=== PATIENT | male | born 1970 | race Caucasian/White ===

== ENCOUNTER → 2020-05-19 | Outpatient (CLI) | payer BC, OTHER ==
[~2020-05-19] VITALS: Ht 180.3 cm; Wt 88.5 kg
[~2020-05-19] MED LIST: ASPIRIN EC81 M1 PO; BACLOFEN 10MG T10 MG PO; CRESTOR10 MG PO; FISH OIL 1,0001 EAC5 PO; LISINOPRIL10 MG PO; MEDROLDOSEPACK PO; MULTIVITAMINS1 EAC7 PO; NEURONTIN300 MG PO
[2020-05-19 10:02] VITALS: BP 137/88
--- NOTE | 2020-05-19 10:25 | NUR ---
Pain Clinic Assessment: 1. History of Osteoarthritis: History of Rheumatoid Arthritis: 2. Height: 5 ft. 11 in. 180.3 cm. Weight: 195.0 lb. oz. 88.452 kg. Patient's BMI: 27.2 3. Vital Signs: BP: 137/88 Pulse: 71 Resp: 14 Temp: 02 Sat: 100 ECG Mon: 4. Pain Intensity: 3 5. Fall Risk: Dizziness: N Needs help standing or walking: N Fallen in the last 3 months: N Fall risk comments: 6. Patient on Blood Thinner: None 7. History of Hypertension: Y 8. Opioid Therapy greater than 6 weeks: Opiate Contract Signed: 9. Risk Assessment Tool Provided: 0 LOW RISK 10. Functional Assessment Tool: 11. Recreational Drug Use: Never Drug Type: Tobacco Use: Never Smoker Tobacco Type: Amount or Packs/day: How Many Years: Alcohol Use: No Frequency: Quant:
--- NOTE | 2020-05-20 12:00 | HPC ---
[facility] [place] [address] PAIN MANAGEMENT CONSULTATION Name: JONAH MCDONALD [facility] [id number] Admission: 05/19/20 Attend Phys: Edinson Yan DO Discharge: Date of : 74 Report #: [id number] THIS REPORT FOR: cc: GORGE DUMONT Physician not on staff Edinson Yan DO ~ DATE OF SERVICE: 05/19/2020 REFERRING PHYSICIAN: Gorge Dumont APRN CHIEF COMPLAINT: Low back pain, left lower extremity pain with paresthesias. HISTORY OF PRESENT ILLNESS: As you know, the patient is a very pleasant 49-year-old male, reporting acute onset of low back pain, left lower extremity pain that presented on 02/10/2020. The patient denies any specific injury or trauma that led to symptom development. He began with low back symptoms radiating all the way down to the left foot. He has now mainly left foot numbness and tingling. He trialled a Medrol Dosepak along with naproxen sodium, which provided only transient improvement in symptoms. He has sought evaluation through chiropractor, it started about 3 weeks ago, appears to be working fairly well for pain control. Due to lack of significant improvement with conservative treatment, the patient was sent to imaging at [facility] in [place], [place]. Imaging showed changes at the L3-L4 level as well as some changes at the L4-L5 and L5-S1 level that prompted referral to our clinic. The patient indicates his pain is continuous. He describes the pain as aching, numbness and tingling. He places his current pain score 3/10, daily average of 3/10, worst pain has been is 10/10. He states the pain is exacerbated with lifting and standing for long periods of time, improves with rest and relaxation. He mainly has symptoms in the buttock area and in the foot, but prior was experiencing symptoms all the way down the leg. He has been doing physician-directed physical therapy, stretching program for the past month to month and a half, but has noted only minimal improvement. Due to lack of improvement with conservative treatment options and the findings of his recent MRI, the patient was referred to our clinic to discuss interventional therapies. PAST MEDICAL HISTORY: 1. Dyslipidemia. 2. Hypertension. 3. Chronic back pain. 4. Osteoarthritis. 5. Coronary artery disease, status post coronary artery bypass graft x 2. PAST SURGICAL HISTORY: Coronary artery bypass grafting x 2, 1973, repeat 2002. SOCIAL HISTORY: The patient is a nonsmoker. Denies [place] [address] PAIN MANAGEMENT CONSULTATION Name: TAMARAJONAH [facility] [id number] Admission: 05/19/20 Attend Phys: Edinson Yan DO Discharge: Date of : 74 Report #: [id number] Denies any chronic alcohol use. 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 He is working, not receiving workmen's compensation nor is he trying to obtain discrete benefits. He is not in litigation in regard to pain. He is unaccompanied at today's visit. REVIEW OF SYSTEMS: Positive for heart trouble, low back pain, left lower extremity pain with paresthesias, numbness and tingling sensations. All other review of systems negative per 12-point review of systems other than those listed in history of present illness. Pain impact score 28/70, moderate interference of daily activities secondary to pain. ALLERGIES: No known drug allergies. CURRENT MEDICATIONS: Lisinopril 10 mg once a day, multivitamin 1 tab per day, omega-3 fish oil 1 tab per day, rosuvastatin 10 mg per day, aspirin 81 mg per day. IMAGING: MRI lumbar spine obtained 05/16/2020 shows prominent central disk protrusion at L3-L4 abuts anterior thecal sac and posterior lipomatosis tapering the canal to 4 mm. There is also noted early posterior facet degenerative changes at L4-L5 and L5-S1. PHYSICAL EXAMINATION: VITAL SIGNS: Blood pressure 137/88, pulse 71, respiratory rate 14 and unlabored. The patient is 100% on room air. Height 5 feet 11 inches tall, weight 195 pounds, BMI calculated 27.2. GENERAL: Well-developed, well-nourished, well-hydrated 49-year-old male. He appears his stated age, placing current pain score up to 3/10. HEENT: Normocephalic, atraumatic. Pupils equal, round, and responsive. The patient is deemed a good historian. He is wearing a mask in compliance with COVID-19 regulations. LUNGS: Clear, no wheeze, rhonchi, no rales. CARDIOVASCULAR: Regular. No appreciable gallop, no rub. ABDOMEN: Soft. Bowel sounds are present. EXTREMITIES: Show no clubbing, no cyanosis, and no edema. MUSCULOSKELETAL: Lower extremity strength appears symmetrical, 5/5. He is intact to light touch from L1 through S2 dermatomes. Deep tendon reflexes are symmetrical at patella and Achilles. Seated straight leg raising positive on the left. Supine straight leg raising positive on the left. Walker's test is negative. Modified Gaenslen's positive for axial low back pain. Ankle clonus negative. Babinski is negative. Gait is antalgic favoring left lower extremity over right; this is mild. ASSESSMENT: [facility] [address] [place] [address] PAIN MANAGEMENT CONSULTATION Name: JONAH MCDONALD Room #: REG [facility]#: [id number] Admission: 05/19/20 Attend Phys: Edinson Yan DO Discharge: Date of : 74 Report #: [id number] 1. Symptomatic lumbar radiculopathy. 2. 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 3. Displacement of lumbar intervertebral disk with radiculopathy. 4. Facet arthropathy of the lumbar spine. 5. Chronic intractable pain. PLAN: 1. Based on today's physical exam and history the patient has provided, the description the patient uses in regard to pain, and the distribution of symptoms, it would appear the patient is suffering from lumbar radiculopathy. We discussed with the patient the findings of his recent MRI, which we obtained after the patient arrived. There is prominent central disk protrusion at L3-L4 tapering the canal to 4 mm, which is near critical spinal stenosis. We correlated this to the patient's findings on physical exam. After this discussion of the findings of his imaging study and his distribution of symptoms and how they correlate, we then discussed the treatment options as follows: 2. We discussed physical therapy, stretching exercises and core strengthening techniques as a treatment course. We discussed medication management adding neuropathic pain medications and a muscle relaxant to help with spasming in the left lower extremity. We discussed epidural injections under fluoroscopic guidance to address lumbar radicular symptoms secondary to near critical central canal stenosis. We also discussed spinal cord stimulator therapy and ultimately surgical decompression at the L3-L4 level. After reviewing the risks and benefits of all the proposed treatment options, the patient chose to begin with medication management. 3. The patient will be started on gabapentin 300 mg dose. We will start 1 tab p.o. at bedtime for 5 nights, increase to 2 tabs p.o. at bedtime for 5 nights; no improvement in symptoms, no side effects, increase to 3 tabs p.o. at bedtime for 5 nights. If again no improvement in symptoms, no side effects of sleepiness, disorientation, confusion, mental slowing, then begin titration in the morning. The plan is to reach a dose of 900 mg b.i.d. if necessary. The patient was advised anytime during the titration of the medication, he notes improvement in symptoms, he could stabilize at that dose, no further escalation. If no improvement in symptoms, no side effects, continue the titration as directed. The patient was given a prescription of gabapentin 300 mg tablets with 2 refills, 3 months' worth of medication. The patient will keep us apprised of the response to the medication and any side effects he may encounter or improvement in symptoms. 4. The patient was provided a prescription of baclofen 10 mg dose. He will take 1 tab p.o. b.i.d. p.r.n. muscle spasms. I have given the patient #60 tablets, 2 refills, 3 months' worth of medication. I have advised the patient not to drive or operate heavy equipment while on this medication until he knows how it will affect him. 5. We plan to see the patient back in followup visit in approximately 30 days. At that time, review the efficacy of the medication adjustments made today. If the patient is doing well, we will continue on the medication, returning his [facility] [address] [place] [address] PAIN MANAGEMENT CONSULTATION Name: JONAH MCDONALD #: REG [facility] Castillo#: [id number] Admission: 05/19/20 Attend Phys: Edinson Yan DO Discharge: Date of : 74 Report #: [id number] care to his PCP to continue his treatment. If symptoms have not improved or he is looking for more aggressive treatment options such as an epidural injection, we will discuss this at followup visit. 6. We wish to thank nurse practitioner, Gorge Dumont, for the opportunity to see the patient in consultation. We will keep you apprised of his response to treatment as we address lumbar radicular symptoms secondary to severe near critical central canal stenosis at L3-L4 level. Again, we wish to thank you for the opportunity to see the patient in consultation. <ELECTRONICALLY SIGNED> By: Edinson Yan DO 05/20/20 1200 [id number] 1130 Edinson Yan DO /nt
== END ==
LOC: PAIN 06:49
PROVIDERS: ATTEND Anesthesiology Pain Medicine
DX: M51.16 Intervertebral disc disorders with radiculopathy, lumbar region (principal); G89.4 Chronic pain syndrome; E78.5 Hyperlipidemia, unspecified; I10 Essential (primary) hypertension; M19.90 Unspecified osteoarthritis, unspecified site; I25.10 Atherosclerotic heart disease of native coronary artery without angina pectoris; Z95.1 Presence of aortocoronary bypass graft; Z79.899 Other long term (current) drug therapy

== ENCOUNTER → 2020-06-23 | Outpatient (CLI) | payer BC, OTHER ==
[~2020-06-23] VITALS: Ht 180.3 cm; Wt 90.1 kg
[~2020-06-23] MED LIST changes: +CYMBALTA30 MG PO; +FLEXERIL PO
--- NOTE | ~2020-06-23 | HPC ---
[facility] [place] [address] PAIN MANAGEMENT CONSULTATION Name: JONAH MCDONALD Room #: REG [facility]#: [id number] Admission: 06/23/20 Attend Phys: Edinson Yan DO Discharge: Date of : 74 Report #: [id number] THIS REPORT FOR: cc: GORGE DUMONT Physician not on staff Edinson Yan DO ~ DOC #: [id number] cc: FIORDALIZA Huntre DO DATE OF SERVICE: 06/23/2020 CHIEF COMPLAINT: Low back pain, left lower extremity pain with paresthesias. HISTORY OF PRESENT ILLNESS: As you know, the patient is a very pleasant 49-year-old male, reporting acute onset of low back pain, left lower extremity pain, presented 02/02/2020. Denies any specific injury or trauma. He was seen in consultation per the request of his nurse practitioner, Gorge Dumont, on 05/19/2020 diagnosed with symptomatic lumbar radiculopathy and severe near critical central canal stenosis. His central canal stenosis is secondary to the displacement of lumbar intervertebral disc and facet arthropathy. We started the patient on gabapentin and baclofen for pain control. The patient reports that he believes he is seeing some improvement in symptoms, but continually experience aching and foot numbness. He returns to discuss adjustments in medication management as he does not feel that he is benefiting from the current therapy. ALLERGIES: No known drug allergies. CURRENT MEDICATIONS: Lisinopril 10 mg once a day, multivitamin one tab per day, omega-3 fish oil 1 tab per day, atorvastatin 10 mg per day, aspirin 81 mg per day, gabapentin 600 mg b.i.d., baclofen 10 mg t.i.d. p.r.n. SOCIAL HISTORY: The patient is a nonsmoker. Denies IV or illicit drug use. Denies any chronic alcohol use. 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 IMAGING: There is no new imaging available. PHYSICAL EXAMINATION: VITAL SIGNS: Blood pressure 116/70, pulse 70, respiratory rate 16 and unlabored. The patient is 99% on room air. Height 5 feet 11 inches tall, weight 198.6 pounds, BMI calculated 27.7. GENERAL: Well-developed, well-nourished, well-hydrated 49-year-old male appearing stated age, pain is rated today, 3/10. HEENT: Normocephalic, atraumatic. Pupils are round. Extraocular muscles are intact. He is wearing a mask in compliance with COVID-19 [place] [address] PAIN MANAGEMENT CONSULTATION Name: JONAH MCDONALD Room #: REG [facility]#: [id number] Admission: 06/23/20 Attend Phys: Edinson Yan DO Discharge: Date of : 74 Report #: [id number] EXTREMITIES: Show no clubbing, no cyanosis. No appreciable edema. MUSCULOSKELETAL: Seated straight leg raising is positive on the left. Supine straight leg raising positive on the left. Walker's test is negative. Modified Gaenslen's positive for axial low back pain. There is decreased tactile sensation across the foot on the left, negative right. ASSESSMENT: 1. Symptomatic lumbar radiculopathy. 2. 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 3. Displacement of lumbar intervertebral disk with radiculopathy. 4. Facet arthropathy, lumbar spine. 5. Chronic intractable pain. PLAN: 1. The patient returns today in followup visit requesting adjustments in medication management in hopes of improving pain. The patient is reporting no significant pain improvement with the gabapentin, but is experiencing some side effects of sleepiness, disorientation and confusion. He wishes adjustments in his medication at that time. He is considering more aggressive treatment options including epidural injections and possibly even surgical decompression, but is hopeful that more conservative approach will be beneficial. We will make the following adjustments in medication management today. 2. We have recommended the patient discontinue gabapentin, in place will be using Cymbalta 30 mg dose to initiate treatment one at night. Continue for 7 nights, increase to 2 tabs p.o. at bedtime or 60 mg dose; if no improvement in symptoms, no side effects, then 30 mg morning and 60 mg at night for 7 nights; if no improvement in symptoms, no side effects, then 120 mg per day or 60 mg b.i.d. The patient was given 120 tablets of the Cymbalta with 2 refills if this is ____ treatment. 3. The patient was provided prescription of cyclobenzaprine 10 mg dose 1 tab p.o. b.i.d. This will take the place of his baclofen. Given the patient, #60 tablets, 2 refills, 3 months' worth of medication. The patient is advised not to drive or operate heavy equipment while on cyclobenzaprine. 4. We will see the patient back in followup visit in 1 month to review efficacy of medications. If there are changes that need to be made, we will keep you apprised. We are hopeful the patient will see benefit. We will see him back in a month. DO ROSIO Mcbride/ARTEMIO [place] [id number] PAIN MANAGEMENT CONSULTATION Name: JONAH MCDONALD Room #: REG [facility]illo#: [id number] Admission: 06/23/20 Attend Phys: Edinson Yan DO Discharge: Date of : 74 Report #: [id number] By: 9 0 Edinson Yan DO /nt
[2020-06-23 10:20] VITALS: BP 116/70
--- NOTE | 2020-06-23 10:47 | NUR ---
Pain Clinic Assessment: 1. History of Osteoarthritis: Not Applicable History of Rheumatoid Arthritis: Not Applicable 2. Height: 5 ft. 11 in. 180.3 cm. Weight: 198.6 lb. oz. 90.084 kg. Patient's BMI: 27.7 3. Vital Signs: BP: 116/70 Pulse: 70 Resp: 16 Temp: 02 Sat: 99 ECG Mon: 4. Pain Intensity: 3 5. Fall Risk: Dizziness: N Needs help standing or walking: N Fallen in the last 3 months: N Fall risk comments: 6. Patient on Blood Thinner: None 7. History of Hypertension: Y 8. Opioid Therapy greater than 6 weeks: N Opiate Contract Signed: 9. Risk Assessment Tool Provided: 0 LOW RISK 10. Functional Assessment Tool: 11. Recreational Drug Use: Never Drug Type: Tobacco Use: Never Smoker Tobacco Type: Amount or Packs/day: How Many Years: Alcohol Use: No Frequency: Quant:
== END ==
LOC: PAIN 07:00
PROVIDERS: ATTEND Anesthesiology Pain Medicine
DX: M51.16 Intervertebral disc disorders with radiculopathy, lumbar region (principal); M79.605 Pain in left leg; R20.2 Paresthesia of skin; G89.29 Other chronic pain

== ENCOUNTER → 2020-09-01 | Outpatient (CLI) | payer BC, OTHER ==
[~2020-09-01] VITALS: Ht 180.3 cm; Wt 89.9 kg
[~2020-09-01] MED LIST changes: +TIZANIDINE HCL6 MG PO
--- NOTE | ~2020-09-01 | HPC ---
[facility] [place] [address] [place] [address] PAIN MANAGEMENT CONSULTATION Name: JONAH MCDONALD Malka Room #: REG [facility]#: [id number] Admission: 09/01/20 Attend Phys: Edinson Yan DO Discharge: Date of : 74 Report #: [id number] THIS REPORT FOR: cc: GORGE DUMONT Physician not on staff Edinson Yan DO ~ cc: Gorge Dumont DATE OF SERVICE: 09/01/2020 CHIEF COMPLAINT: Low back pain, left lower extremity pain with paresthesias. HISTORY OF PRESENT ILLNESS: As you know, the patient is a very pleasant 49-year-old male, reporting acute onset of low back pain, left lower extremity pain that presented 02/02/2020. He denies specific injury or trauma. He was seen in consultation per the request of nurse practitioner, Gorge Dumont on 05/19/2020, diagnosed with symptomatic lumbar radiculopathy secondary to severe near-critical central canal stenosis. His central canal stenosis is secondary to the displacement of lumbar intervertebral disc, facet arthropathy and epidural lipomatosis. The patient was initially tried on medication in the form of gabapentin and baclofen. This unfortunately did not provide much in the way of improvement. He returned. He was started on Cymbalta, taking 60 mg b.i.d. with good efficacy. He returns today in followup visit to continue his Cymbalta therapy at 60 mg b.i.d. and to receive refill of tizanidine 6 mg dose p.r.n. for muscle spasming. The patient denies side effects of medication. He feels that his pain has been well controlled. He continues to experience numbness in the lower extremity, but this is "tolerable to him." He wishes to discuss continuation of the medication management as he has found benefit with its use. ALLERGIES: No known drug allergies. CURRENT MEDICATIONS: Lisinopril 10 mg once a day, multivitamin one tab per day, Simla-3 fish oil 1 tab per day, atorvastatin 10 mg per day, aspirin 81 mg per day, cyclobenzaprine 10 mg b.i.d., Cymbalta 60 mg b.i.d. SOCIAL HISTORY: The patient is a nonsmoker. He denies IV or illicit drug use. Denies any chronic alcohol use. 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 IMAGING: No new imaging available. PHYSICAL EXAMINATION: VITAL SIGNS: Blood pressure 151/92, pulse 70, respiratory rate 14 and unlabored. The patient 100% on room air. Height 5 feet 11 inches tall, weight 198.2 pounds, BMI calculated 27.7. GENERAL: A well-developed, well-nourished, well-hydrated 49-[place] [address] PAIN MANAGEMENT CONSULTATION Name: TAMARA,JONAH W Room #: REG [facility]#: [id number] Admission: 09/01/20 Attend Phys: Edinson Yan DO Discharge: Date of : 74 Report #: [id number] appearing stated age, pain is rated today around 2/10. HEENT: Normocephalic, atraumatic. Pupils equal, round and responsive. His speech is fluent. He is wearing a mask in compliance with COVID-19 regulations. EXTREMITIES: Show no clubbing, no cyanosis, no edema. MUSCULOSKELETAL: Lower extremity strength is symmetrical 5/5. Muscle bulk and tone is equal and symmetrical in comparing lower extremities. Seated straight leg raising positive on the left. Supine straight leg raising positive on the left. Gait is antalgic, favoring left lower extremity over right. ASSESSMENT: 1. Symptomatic lumbar radiculopathy. 2. Severe near critical central canal stenosis of the lumbar spine. 3. Displacement of lumbar intervertebral disk with radiculopathy. 4. Facet arthropathy, lumbar spine. 5. Chronic intractable pain. PLAN: 1. The patient returns today in followup visit indicating good efficacy with the Cymbalta at 60 mg b.i.d. He is denying any side effects with their use. He has had complete resolution of his pain. He is now only experiencing numbness and tingling in the left lower extremity. This is due to his near critical central canal stenosis. We discussed this with the patient at length today. The patient is understandable of his pathology, but wishes no changes in treatment at this juncture. He does not wish to consider surgical options to decompress the area. He has requested refill of the Cymbalta and a prescription for tizanidine. 2. The patient was provided prescription of Cymbalta 60 mg dose 1 tab b.i.d. I have given the patient #60 tablets to release today, 4 weeks from today, 8 weeks from today, 3 months' worth of medication. All prescriptions sent via e-scribe to local pharmacy. The patient is denying side effects of the medication and has found it completely able to alleviate pain. Unfortunately, patient continues to experience paresthesias, but he states these are tolerable. 3. The patient has requested a prescription of tizanidine 6 mg dose. Apparently, this was provided by his primary care nurse practitioner. The patient was given a prescription for tizanidine 6 mg dose 1 tab p.o. b.i.d. p.r.n. muscle spasms, given the patient #60 tablets with refills. The patient was advised not to drive or operate heavy equipment while on this medication. All prescriptions sent e-scribe to local pharmacy. 4. We will see the patient back in followup visit in 3 months for medication management. I did advise the patient if his symptoms reoccur or medications are losing efficacy, return as quickly as possible. By: [id number] Edinson Yan DO /nt
[2020-09-01 10:15] VITALS: BP 151/92
--- NOTE | 2020-09-01 10:35 | NUR ---
Pain Clinic Assessment: 1. History of Osteoarthritis: Not Applicable History of Rheumatoid Arthritis: Not Applicable 2. Height: 5 ft. 11 in. 180.3 cm. Weight: 198.2 lb. oz. 89.903 kg. Patient's BMI: 27.7 3. Vital Signs: BP: 151/92 Pulse: 70 Resp: 14 Temp: 02 Sat: 100 ECG Mon: 4. Pain Intensity: 2 5. Fall Risk: Dizziness: N Needs help standing or walking: N Fallen in the last 3 months: N Fall risk comments: 6. Patient on Blood Thinner: None 7. History of Hypertension: Y 8. Opioid Therapy greater than 6 weeks: N Opiate Contract Signed: 9. Risk Assessment Tool Provided: 0 LOW RISK 10. Functional Assessment Tool: 11. Recreational Drug Use: Never Drug Type: Tobacco Use: Never Smoker Tobacco Type: Amount or Packs/day: How Many Years: Alcohol Use: No Frequency: Quant:
== END ==
LOC: PAIN 07-21 13:07
PROVIDERS: ATTEND Anesthesiology Pain Medicine
DX: M51.16 Intervertebral disc disorders with radiculopathy, lumbar region (principal); G89.4 Chronic pain syndrome; Z79.899 Other long term (current) drug therapy; Z79.891 Long term (current) use of opiate analgesic